=== PATIENT | male | born 1960 | race Caucasian/White ===

== ENCOUNTER 2023-03-26 07:06 | Inpatient (IN) ==
--- NOTE | 2023-02-14 10:21 | PAT Medication Instructions ---
Medication Instructions Date of Service February 14, 2023 Home Medications Pregnenolone 50 mg PO QPM cholecalciferol (vitamin D3) 25 mcg (1,000 unit) tablet (Vitamin D3) 25 mcg PO QAM coQ10 (ubiquinol) 200 mg capsule 200 mg PO QAM gabapentin 300 mg capsule 300 mg PO TID PRN glimepiride 2 mg tablet 2 mg PO BID lisinopril 5 mg tablet 5 mg PO HS metformin 1,000 mg tablet 1,000 mg PO BID methocarbamol 750 mg tablet 750 mg PO DAILY PRN prasterone (dhea) 25 mg capsule (DHEA) 25 mg PO QAM zinc 50 mg tablet 50 mg PO QAM ASK your prescriber and surgeon Pregnenolone 50 mg PO QPM STOP taking 2 weeks before surgery (or as soon as possible if surgery is within 2 weeks) coQ10 (ubiquinol) 200 mg capsule 200 mg PO QAM prasterone (dhea) 25 mg capsule (DHEA) 25 mg PO QAM DO NOT take the morning of surgery cholecalciferol (vitamin D3) 25 mcg (1,000 unit) tablet (Vitamin D3) 25 mcg PO QAM glimepiride 2 mg tablet 2 mg PO BID metformin 1,000 mg tablet 1,000 mg PO BID methocarbamol 750 mg tablet 750 mg PO DAILY PRN zinc 50 mg tablet 50 mg PO QAM Take morning of surgery With a small sip of water, OTHERWISE NOTHING TO EAT OR DRINK AFTER MIDNIGHT: gabapentin 300 mg capsule 300 mg PO TID PRN(if needed) Take evening before surgery gabapentin 300 mg capsule 300 mg PO TID PRN(if needed) glimepiride 2 mg tablet 2 mg PO BID lisinopril 5 mg tablet 5 mg PO HS metformin 1,000 mg tablet 1,000 mg PO BID Other Notes If you have any questions please call us at [phone] or [phone] or [phone] or [phone]
--- NOTE | 2023-02-15 12:23 | Anesthesiology Consultation ---
Date of Service February 15, 2023 Assessment & Plan (1) Encounter for pre-operative examination: Chart Review Chart Review: Acceptable Risk for Surgery (pending surgeon ordered PCP clearance ) and Patient seen in Pre Admission Testing - Awaiting PCP clearance 02/20/23 (please send optimization note re: uncontrolled DM/hyperglycemia and labs, EKG, and CXR to PCP office for review) - Check BSG AM DOS - Pt has high tolerance to pain medication due to being on previous pain medications Per PAT appt on 02/15/23, patient traveled to [place]- returned 02/13/23. Pt is NOT vaccinated for Covid. Will leave to surgeon's discretion if preop Covid testing needed. Educated on importance of using Covid precautions one week prior to surgery Teaching & Discussion Pre-Anesthesia Teaching/Discussion Notes: Instructed NPO after midnight before surgery,except medications with 15 cc of water. Medication instructions provided according to the PAT guidelines. History Surgery Operation Date: 02/25/23 11:25 Proposed Procedures p L2-L3 Decompression and Fusion, Possible L3-L5 Reinstrumentation, Spinal Cord Monitoring - Vasile Olivia DO Height/Weight Height: 5 ft 9 in Weight: 87.1 kg Allergies Allergy/AdvReac Type Severity Reaction Status Date / Time amoxicillin Allergy Intermediate shakey and Verified 02/14/23 09:19 hyper clavulanic acid Allergy Intermediate shakey and Verified 02/14/23 09:19 hyper Tollmpk-[id number]-DgY Reductase Allergy Intermediate severe Verified 02/14/23 09:19 Inhibitor myalgias [Ltduijw-Ecf-Irb Reductase Inhibitor] Medications Home Medications Medication Instructions Recorded Confirmed Last Taken Pregnenolone 50 mg PO QPM 02/14/23 02/14/23 Unknown cholecalciferol (vitamin D3) 25 25 mcg PO QAM 02/14/23 02/14/23 Unknown mcg (1,000 unit) tablet (Vitamin D3) coQ10 (ubiquinol) 200 mg capsule 200 mg PO QAM 02/14/23 02/14/23 Unknown gabapentin 300 mg capsule 300 mg PO TID PRN Pain 02/14/23 02/14/23 Unknown glimepiride 2 mg tablet 2 mg PO BID 02/14/23 02/14/23 Unknown lisinopril 5 mg tablet 5 mg PO HS 02/14/23 02/14/23 Unknown metformin 1,000 mg tablet 1,000 mg PO BID 02/14/23 02/14/23 Unknown methocarbamol 750 mg tablet 750 mg PO DAILY PRN Muscle Spasm 02/14/23 02/14/23 Unknown prasterone (dhea) 25 mg capsule 25 mg PO QAM 02/14/23 02/14/23 Unknown (DHEA) zinc 50 mg tablet 50 mg PO QAM 02/14/23 02/14/23 Unknown Past Medical History Medical History (Updated 02/18/23 @ 10:17 by Bhavna Riojas PA-C) BPH (benign prostatic hyperplasia) Chronic back pain Diabetes mellitus, type 2 NIDDM Glucose not under good control due to pain (fluctuating glucose) Hgb A1C on 02/15/23 was 10.0 History of COVID-19 x2--06/2022--mild symptoms, no symptoms now Hypertension Nausea and vomiting after administration of anesthetic agent normally needs a scopolamine patch Exercise / Class Metabolic Activity II 4-5 Yardwork/Stairs/Walk up hill (one flight of stairs - no chest pain or SOB ) Past Family History Family History Other No family history of adverse response to anesthesia Past Surgical History Surgical History History of cervical spinal surgery normal ROM History of cholecystectomy History of colonoscopy History of esophagogastroduodenoscopy (EGD) History of lumbar spinal fusion History of nasal polypectomy History of prostate biopsy benign History of repair of left rotator cuff History of toe surgery History of tooth extraction Past Anesthesia History No Hx of Anesthesia Complications (with exception PONV ) and No Family Hx of Anesthesia Complications (with exception to sister - PONV ) History of PONV No Hx of Motion Sickness and History of PONV (relieved with scop ) Social History Smoking Status: Never smoker Do You Dip or Chew Tobacco: No Hx Alcohol Use: No Hx Substance Use: No substance use type: does not use Review of Systems Patient denies chest pain, shortness of breath, dyspnea on exertion, reflux, cough, wheezing, palpitations. No hx of seizures, stroke, NV, apnea/snoring. No hx of blood clots or blood transfusions Physical Exam Vital Signs VITALS BP 169/71 (usually 130s systolically) P 69 TEMP 98.3 SP02 99% RESP 16 Constitutional no acute distress ENMT Mouth: no TMJ clicking Thyromental Distance: > or= 3.5 Finger Breadths (4.0) Mallampati Class: III Neck neck extension not limited Respiratory normal respiratory effort; no respiratory distress Auscultation: lungs clear to auscultation bilaterally; no wheezes Cardiovascular Rate/Rhythm: regular rate and regular rhythm Heart Sounds: no murmur Vessels: no carotid bruit Musculoskeletal Spine: no pain with cervical ROM Extremities: extremities normal to inspection Psychiatric Orientation: alert Lab Results Anesthesia Preop Results Results Anesthesia Widget: WBC 7.29 K/ul (4.8-10.8) 02/15/23 Hgb 14.4 g/dl (14.0-18.0) 02/15/23 Hct 41.5 % (42.0-52.0) L 02/15/23 Plt 209 K/uL (130-400) 02/15/23 Na 136 mmol/L (136-145) 02/15/23 K 4.4 mmol/L (3.5-5.1) 02/15/23 Cl 102 mmol/L (98-107) 02/15/23 CO2 24 mmol/L (21-32) 02/15/23 BUN 16 mg/dl (6-23) 02/15/23 Creat 1.05 mg/dl (0.6-1.4) 02/15/23 Glucose Level 250 mg/dl (70-99(Fasting)) H 02/15/23 PT 10.2 Seconds (9.0-12.0) 02/15/23 PTT 25.9 Seconds (21.0-31.0) 02/15/23 INR 0.9 (0.9-1.1) 02/15/23 HA1c 10.0 % (4.5-5.6) H 02/15/23 Urine Color Dark Yellow 02/15/23 Urine Appearance Clear (Clear) 02/15/23 Urine pH 5.5 (4.5-7.5) 02/15/23 Urine Specific [place] 1.019 (1.000-1.030) 02/15/23 Urine Protein Negative (Negative) 02/15/23 Urine Glucose (UA) Negative (Negative) 02/15/23 Urine Ketones 1+ (Negative) H 02/15/23 Urine Blood Negative (Negative) 02/15/23 Urine Nitrite Negative (Negative) 02/15/23 Urine Bilirubin Negative (Negative) 02/15/23 Urine Urobilinogen Negative (Negative) 02/15/23 Urine Leukocyte Esterase Negative (Negative) 02/15/23 Blood Type A Positive 02/15/23 Antibody Screen NEGATIVE 02/15/23 Testing Laboratory Results Surgeon's office informed of hyperglycemia and uncontrolled DM Electrocardiogram Date: 02/15/23 Findings: + NSR @ (69bpm) Normal EKG per cardio Chest X-Ray Date: 02/15/23 Findings: + NAD FINDINGS: Cardiac mediastinal and hilar silhouettes are within normal limits. Unchanged eventration of the right hemidiaphragm. No pneumothorax, pleural effusion, airspace consolidation or pulmonary edema. Discectomy changes of the lower cervical spine. Cholecystectomy. COVID-19 Risk Screen Screening Information COVID-19 Screen Date: 02/15/23 Exposure 21 Days Family/Household +COVID Last 21 Days: No Exposure 10 Days Any COVID Exposure Last 10 Days: No Symptoms Last 10 Days Experienced COVID Sx Last 10 Days: No + COVID 0-90 Days COVID + in Last 0-90 Days: No Risk Plan COVID Risk Plan: No Risk Identified Patient Education COVID Preop Screening Education Complete: Yes
[~2023-03-26 07:06] MED LIST: ACETAMINOPHEN 500 MG TAB PO SCH; CLINDA 900 MG **Premixed Bag IV SCH; CeleBREX 200 MG CAP PO SCH; DEXAMETHASONE SOD INJ 4 MG/ML VIAL ONE; GABAPENTIN 600 MG DOSE PO SCH; LIDOCAINE 2% 2 ML VIAL/AMP(20MG/ML) INFIL ONE; LR 15ML/HR IV SCH; MIDAZOLAM HCL 1 MG/ML 2ML VIAL ONE; ONDANSETRON INJ 2 MG/ML 2 ML VIAL ONE; PROPOFOL IV EMULSION 10 MG/ML 20 ML VIAL IV ONE; SUGAMMADEX SODIUM 200 MG/2 ML VIAL IV ONE; fentaNYL citrate PF 100 MCG/2 ML VIAL ONE
[2023-03-26] MEDS ORDERED: PROMETHAZINE HCL 6.25 MG in SODIUM CHLORIDE 0.9% 50 ML IV PRN (08:43)
[2023-03-26] MEDS ORDERED: HYDROmorphone INJ 2 MG/ML SYR/VIAL IV PRN (08:43)
[2023-03-26] MEDS ORDERED: ONDANSETRON INJ 2 MG/ML 2 ML VIAL IV PRN ×2 (08:43→12:27)
[2023-03-26] MEDS ORDERED: ePHEDrine sulfate 50 MG/ML AMP IV PRN (08:43)
[2023-03-26] MEDS ORDERED: ATROPINE SULFATE 0.1 MG/ML 10ML SYR IV PRN (08:43)
[2023-03-26] MEDS ORDERED: SCOPOLAMINE 1 MG TDSY TD ONE ×2 (08:44→08:45)
--- NOTE | 2023-03-26 08:45 | History & Physical Bridge Note ---
Date of Service March 26, 2023 History & Physical Bridge Note I have examined the patient, reviewed the History & Physical and in the interval since the performance of the History & Physical I have noted the following changes of clinical significance: no changes noted
--- NOTE | 2023-03-26 08:47 | History & Physical Report ---
Date of Service March 26, 2023 Assessment & Plan (1) Neurogenic claudication due to lumbar spinal stenosis: Plan: L2-L3 decompression and fusion, possible L3-L5 instrumentation History of Present Illness Chief Complaint: back and bilateral leg pain Primary Care Provider: Antonio Rodriguez MD This is a 62-year-old male who presents with chronic persistent back and bilateral leg pain after an extensive course of nonoperative care is here for surgical invention. Allergies Allergy/AdvReac Type Severity Reaction Status Date / Time amoxicillin Allergy Intermediate shakey and Verified 03/26/23 07:43 hyper clavulanic acid Allergy Intermediate shakey and Verified 03/26/23 07:43 hyper Krmiewx-WOO-DdI Reductase Allergy Intermediate severe Verified 03/26/23 07:43 Inhibitor myalgias [Ifjbwda-Amo-Mfp Reductase Inhibitor] Home Medications Medication Instructions Recorded Confirmed Type Pregnenolone 50 mg PO QPM 02/14/23 03/26/23 History cholecalciferol (vitamin D3) 25 25 mcg PO QAM 02/14/23 03/26/23 History mcg (1,000 unit) tablet (Vitamin D3) coQ10 (ubiquinol) 200 mg capsule 200 mg PO QAM 02/14/23 03/26/23 History gabapentin 300 mg capsule 300 mg PO TID PRN Pain 02/14/23 03/26/23 History glimepiride 2 mg tablet 2 mg PO BID 02/14/23 03/26/23 History lisinopril 5 mg tablet 5 mg PO HS 02/14/23 03/26/23 History metformin 1,000 mg tablet 1,000 mg PO BID 02/14/23 03/26/23 History methocarbamol 750 mg tablet 750 mg PO DAILY PRN Muscle Spasm 02/14/23 03/26/23 History prasterone (dhea) 25 mg capsule 25 mg PO QAM 02/14/23 03/26/23 History (DHEA) zinc 50 mg tablet 50 mg PO QAM 02/14/23 03/26/23 History tramadol 50 mg tablet 50 mg PO Q6H PRN Pain 03/26/23 03/26/23 History Past Med/Surg History Medical History (Updated 03/26/23 @ 08:47 by Vasile Olivia DO) BPH (benign prostatic hyperplasia) Chronic back pain Diabetes mellitus, type 2 NIDDM Glucose not under good control due to pain (fluctuating glucose) Hgb A1C on 02/15/23 was 10.0 History of COVID-19 x2--06/2022--mild symptoms, no symptoms now Hypertension Nausea and vomiting after administration of anesthetic agent normally needs a scopolamine patch Surgical History History of cervical spinal surgery normal ROM History of cholecystectomy History of colonoscopy History of esophagogastroduodenoscopy (EGD) History of lumbar spinal fusion History of nasal polypectomy History of prostate biopsy benign History of repair of left rotator cuff History of toe surgery History of tooth extraction Family History Other No family history of adverse response to anesthesia Social History Smoking Status: Never smoker Second Hand Exposure: No; Do You Dip or Chew Tobacco: No; Tobacco Cessation Education Requested by Patient: No Hx Alcohol Use: No Hx Substance Use: No Preferred Language: Welsh Communication Ability: Effective Director [employer] Required: No Beliefs That Will Affect Care: None Current Living Situation: Spouse Other Information That Helps Us Care for You: No Feels Safe at Home: Yes Safety Concerns: Feels Safe At This Time Assistive Devices: Glasses Physical Exam Physical Exam: Patient is alert and oriented Heart regular rhythm Lungs clear Results & Data Results & Data Vital Signs (Past 12 Hours) Vital Signs Temp Pulse Resp BP Pulse Ox O2 Del Method 03/26/23 07:50 36.7 C 75 20 159/84 H 98 Room Air
[2023-03-26] MEDS ORDERED: BUPIVACAINE/EPINEPHRINE 0.25% 1:200,000 30 ML VIAL ONE (08:53)
[2023-03-26] MEDS ORDERED: ceFAZolin 330 MG/ML 1 GM VIAL ONE (08:53)
[2023-03-26] MEDS ORDERED: KETAMINE 50 MG/5 ML SYRINGE ONE (09:34)
[2023-03-26] MEDS ORDERED: ROCURONIUM BROMIDE 10 MG/ML 5 ML VIAL IV ONE ×10 (09:44)
[2023-03-26] MEDS ORDERED: PROPOFOL IV EMULSION 10 MG/ML 100 ML VIAL IV ONE (09:47)
[2023-03-26] MEDS ORDERED: FLOSEAL HEMOSTATIC MATRIX 10ML TOP ONE (09:59)
--- NOTE | 2023-03-26 11:10 | Operative Report ---
Post Operative Report Pre & Post Diagnosis Operation Date: 03/26/23 08:45 Pre-Op Diagnosis: Neurogenic claudication due to lumbar spinal stenosis Post-Op Diagnosis: Neurogenic claudication due to lumbar spinal stenosis I identified the patient and participated in the time-out.: Yes Procedure Operation Date: 03/26/23 08:45 Actual Procedures 1. Removal of posterior instrumentation L3-L5 per #2 exploration of fusion L3 L5 #3 lumbar decompression with bilateral medial facetectomies and foraminotomies L1-L2 L2-L3. #4 posterior spinal fusion L2-L3. #5 placement posterior instrumentation L2-L5. #6 interbody fusion L2-L3. #7 placement of Spira 13 x 26 mm cage at L2-L3. #8 placement locally harvested morselized autograft in the posterior gutters. #9 placement of I factor combined with V toss in the interbody space and posterior lateral gutters. Surgeon Vasile Olivia, Biogeographer Annabel Pineda Estimated Blood Loss 200 Findings Consistent with Post-Op Diagnosis Specimens none Indications This is a 62-year-old male who presents above-mentioned diagnosis after failed course of nonoperative care is here for surgical invention. Description of Procedure Patient was met with identified informed consent obtained. Patient was then taken to the operative suite underwent ablation placed in a prone position on the Jex table top Charli frame. All bony promises well-padded eyes inspected to ensure no external pressure placed upon the. This point the lumbar spine is prepped and draped in a sterile fashion. Sharp dissection with the assistance of Bovie cautery was performed down to and exposing the lamina and transverse processes of L2 and instrumentation at L3 L4-5 bilaterally. Then proceeded move the hardware bilaterally explore the fusion mass noting it to be mature and intact. Then performed a complete laminectomy L2 partial laminectomy of L1 including bilateral medial facetectomies and foraminotomies addressing severe spinal stenosis. Pedicle screws then placed L2-L3 and L5 bilaterally with assistance of fluoroscopy and appropriately sized gertrude placed. By way of transforaminal approach on the right complete discectomy of L2-L3 was performed endplates curetted to subcortically bone and a 13 x 26 mm Spira cage with I factor tapped in position. The rods were then locked in final position bilaterally. The transverse processes of L2-L3 burred to subcortical bleeding bone. I factor amount of the test and locally harvested morselized autograft placed in the posterior gutters. 15 round BRETT drain inserted. The incision was then closed with 1 Vicryl to fascia 2-0 Vicryl subcutaneously and 4 Monocryl for final skin closure. Steri-Strips sterile dressing placed. Patient awakened taken to PACU stable condition. Please note spinal cord monitoring visualized at the procedure no changes noted. Lastly Annabel Pineda was present at the entire surgery involved the patient positioning complex portions of the surgery and final skin closure. I attest to the content of the Intraoperative Record and any orders documented therein. Any exceptions are noted below.
--- NOTE | 2023-03-26 11:17 | Fluoroscopy Report ---
INTRAOPERATIVE RADIOGRAPHS CLINICAL HISTORY: Lumbar spinal fusion surgery. Fluoro time: 18 seconds Ka,r: 10.69 mGy FINDINGS: 3 spot fluoroscopic views of the lumbar spine are presented. There has been discectomy at L 2-L3 and L4-L5, with laminectomy and posterior fusion seen at L2-L5. Interpedicular screws are presen t at all levels with the exception of L4. The orthopedic hardware appears intact. IMPRESSION: Intraoperative images from lumbar spinal fusion surgery as above. Electronically signed by: Neo Márquez M.D. 03/26/2023 11:15 AM
[2023-03-26] MEDS: fentaNYL citrate PF 100 MCG/2 ML VIAL IV PRN ×2 (11:55→12:00)
[2023-03-26] MEDS ORDERED: FAMOTIDINE 20 MG TAB PO PRN (12:27)
[2023-03-26] MEDS ORDERED: MAGNESIUM HYDROXIDE SUSP 30 ML UDC PO PRN (12:27)
[2023-03-26] MEDS ORDERED: LORazepam 0.5 MG TAB PO PRN (12:27)
[2023-03-26] MEDS ORDERED: ACETAMINOPHEN 500 MG TAB PO PRN (12:27)
[2023-03-26] MEDS ORDERED: bisacodyL 10 MG SUPP PR PRN (12:27)
[2023-03-26] MEDS ORDERED: DO NOT ADMINISTER FLU VACCINE PRN (12:27)
[2023-03-26] MEDS ORDERED: traMADol HCL 50 MG TABLET PO PRN (12:27)
[2023-03-26] MEDS ORDERED: diphenhydrAMINE Capsule 25 MG CAP PO PRN (12:27)
[2023-03-26] MEDS ORDERED: LORazepam 2 MG/1 ML VIAL IV PRN (12:27)
[2023-03-26] MEDS ORDERED: PHARMACY GLYCEMIC MGMT CONSULT PRN (12:27)
[2023-03-26] MEDS ORDERED: ACETAMINOPHEN 1,000 MG/100 ML VIAL IV PRN (12:27)
[2023-03-26] MEDS ORDERED: GABAPENTIN 300 MG CAP PO PRN (12:27)
[2023-03-26] MEDS ORDERED: hydrOXYzine HCl 25 MG TAB PO PRN (12:27)
[2023-03-26] MEDS ORDERED: ONDANSETRON 4 MG OD TAB PO PRN (12:27)
[2023-03-26] MEDS ORDERED: PROMETHAZINE HCL 12.5 MG in SODIUM CHLORIDE 0.9% 50 ML IV PRN (12:27)
[2023-03-26] MEDS ORDERED: DO NOT ADMINISTER PNEUMOCOCCAL VACCINE PRN (12:27)
[2023-03-26] MEDS ORDERED: ALUMINUM/MAGNESIUM SUSP 30 ML UDC PO PRN (12:27)
[2023-03-26] MEDS ORDERED: METOCLOPRAMIDE HCL INJ 5 MG/ML 2 ML VIAL IV PRN (12:27)
[2023-03-26] MEDS ORDERED: NALOXONE HCL 0.4 MG/1 ML VIAL/CARP IV PRN (12:27)
[2023-03-26] MEDS ORDERED: SOD PHOSPHATE/SOD BIPHOSPHATE ENEMA 132 ML BTL PR PRN (12:27)
[2023-03-26] MEDS: SODIUM CHLORIDE 0.9% 1000ML 1,000 ML IV SCH (12:30)
[2023-03-26] MEDS: HYDROmorphone INJ 1 MG/ML SYRINGE IV PRN (12:46)
--- NOTE | 2023-03-26 13:03 | Hospitalist Consultation ---
Date of Consultation March 26, 2023 Assessment & Plan (1) Neurogenic claudication due to lumbar spinal stenosis: - Post op day #0 L2L3 decompression and fusion, L3L5 reinstrumentation, spinal cord monitoring and L3-L5 hardware removal (EBL 200) (2) Weakness of left upper extremity: A stroke alert was called and patient went urgently to CT scan CT head revealed no acute intracranial findings. CTA head unremarkable CTA of the brain. CTA neck revealed high grade stenosis at the origin of the vertebral artery and atheromatous plaque involving the proximal cervical segments of the internal carotid arteries resulting in less than 50% stenosis. Messaged to anesthesia to see if any concerns perioperatively with patient Spoke with Dr Olivia over the phone and informed him of patient's complaints, his CT and CTA results and also about his transfer to [facility]. Discussed MRI head and neck and per Dr Olivia this is fine to order from his standpoint he stated all his hardware is titanium and able to have the MRI. Dr Olivia also stated that the surgery went well with no complications and he also felt his symptoms may be positional. His arms were up over his head during the surgery. Transfer patient to [facility] (3) Diabetes mellitus, type 2: Chronic, unstable Last HgbA1C was 10 in February 2023 Primary team consulted pharmacy for glycemic control (4) DDD (degenerative disc disease), cervical: Chronic Hx of C3 surgery 2014 Hx of left shoulder surgery 2019 (5) Hypertension: Chronic, stable Continue Lisinopril Supervising Physician Co-Signing Physician Notes I personally saw and examined the patient. I verified all rolon points and agree with Paige Chow PA-C with the following exceptions and/or additions: 62 year old male POD#0 Lumbar spinal decompression and revision of hardware. Priority texted to bedside as when patient came up from PACU having left lower extremity and left upper extremity weakness. No change in vision, speech or hearing. On discussion with his she reports unexplained LLE weakness after prior back surgery but not LUE weakness. He has had cervical spine surgery due to LUE radicular symptoms in the past and neck pain but these have resolved following surgery and no recent problems with this. O/E Alert and orientated x3, HS RRR, no murmurs, Chest CTAB, Abdo SNT, normal speech exam, PERRL, EOMI without diplopia, Significant pronator drift on left upper extremity with numbness in this sidem unable to lift arm against gravity only with gravity removed. CN 2-> 12 intact, LLE also with generalized numbness compared to RLE. A/P Stroke-like symptoms - stroke alert called for imaging and labs although patient not TNK candidate given back surgery POD#0 therefore telestroke actually c onsultation cancelled. Brain MRI and cervical spine ordered. Improving LUE weakness on repeat exam following CT. Unclear if LLE weakness/numbness same process but this could be due to his surgery and would re-examine in the morning. His LUE weakness appears to be neuropathic but unclear if positional cause vs. neck vs srtoke. MRI brain and cervical spine wo IV contrast. Otherwise as above History of Present Illness Reason for Consultation: Medical management Requesting Physician: Dr Olivia Attending Physician: Vasile Olivia, DO History of Present Illness Reggie Rodgers is a 62 year old with a past medical history of HT, DM, Migraine headaches, DDD of cervical spine with previous C3 surgery and neurogenic claudication due to lumbar spinal stenosis who failed medical managemet and presented today for elective back surgery with Dr Olivia. Patient is post op day#0 L2L3 decompression and fusion, L3L5 reinstrumentation, spinal cord monitoring and L3-L5 hardware removal (EBL 200). A consult was placed with the hospitalist service for medical management. When patient came up to the floor from PACU, he was complaining of bilateral arm/hand numbness. Later he stated that the left arm felt weaker and was numb and tingling. He did not have any problems speaking. His was at bedside and stated that she felt his face was symmetrical and at his baseline. A stroke alert was called and patient went urgently to ce CT head, CTA neck and head. Ct head revealed no acute intracranial findings. CTA neck revealed high grade stenosis at the origin of the vertebral artery and atheromatous plaque involving the proximal cervical segments of the internal carotid arteries resulting in less than 50% stenosis. Patient was reevaluated after CT scans and he stated that the left arm was starting to feel like the sensation was returning. Patient's also stated that he had left shoulder surgery and C3 surgery in the past. She states he had problems also in the past after his previous surgeries with weakness and numbness. Allergies Allergy/AdvReac Type Severity Reaction Status Date / Time amoxicillin Allergy Intermediate gely and Verified 03/26/23 07:43 hyper clavulanic acid Allergy Intermediate shakey and Verified 03/26/23 07:43 hyper Hkladmr-FZN-LwM Reductase Allergy Intermediate severe Verified 03/26/23 07:43 Inhibitor myalgias [Agxeimq-Ndr-Vxp Reductase Inhibitor] Home Medications Medication Instructions Recorded Confirmed Type Pregnenolone 50 mg PO QPM 02/14/23 03/26/23 History cholecalciferol (vitamin D3) 25 25 mcg PO QAM 02/14/23 03/26/23 History mcg (1,000 unit) tablet (Vitamin D3) coQ10 (ubiquinol) 200 mg capsule 200 mg PO QAM 02/14/23 03/26/23 History gabapentin 300 mg capsule 300 mg PO TID PRN Pain 02/14/23 03/26/23 History glimepiride 2 mg tablet 2 mg PO BID 02/14/23 03/26/23 History lisinopril 5 mg tablet 5 mg PO HS 02/14/23 03/26/23 History metformin 1,000 mg tablet 1,000 mg PO BID 02/14/23 03/26/23 History methocarbamol 750 mg tablet 750 mg PO DAILY PRN Muscle Spasm 02/14/23 03/26/23 History prasterone (dhea) 25 mg capsule 25 mg PO QAM 02/14/23 03/26/23 History (DHEA) zinc 50 mg tablet 50 mg PO QAM 02/14/23 03/26/23 History tramadol 50 mg tablet 50 mg PO Q6H PRN Pain 03/26/23 03/26/23 History Patient History Medical History (Updated 03/26/23 @ 14:16 by Sharda Chow PA-C) BPH (benign prostatic hyperplasia) Chronic back pain Diabetes mellitus, type 2 NIDDM Glucose not under good control due to pain (fluctuating glucose) Hgb A1C on 02/15/23 was 10.0 History of COVID-19 x2--06/2022--mild symptoms, no symptoms now Hypertension Nausea and vomiting after administration of anesthetic agent normally needs a scopolamine patch Surgical History History of cervical spinal surgery normal ROM History of cholecystectomy History of colonoscopy History of esophagogastroduodenoscopy (EGD) History of lumbar spinal fusion History of nasal polypectomy History of prostate biopsy benign History of repair of left rotator cuff History of toe surgery History of tooth extraction Family History Other No family history of adverse response to anesthesia Social History Smoking Status: Never smoker Second Hand Exposure: No; Do You Dip or Chew Tobacco: No; Tobacco Cessation Education Requested by Patient: No Hx Alcohol Use: No Hx Substance Use: No Preferred Language: Malay Communication Ability: Effective Tool Drawing Checker Required: No Beliefs That Will Affect Care: None Current Living Situation: Spouse Other Information That Helps Us Care for You: No Feels Safe at Home: Yes Safety Concerns: Feels Safe At This Time Assistive Devices: Glasses Review of Systems Constitutional: no fever, no chills and no sweats Eyes: no blind spots, no diplopia, no eye pain and no problem reported Respiratory: no cough, no dyspnea and no hemoptysis Cardiovascular: no chest pain, no dyspnea, no palpitations and no edema Gastrointestinal: no abdominal pain, no nausea and no vomiting Integumentary: no rash, no lesions and no new lesions Neurologic: + loss of sensation, + tingling and + paresthesia; no falls, no paralysis, no tremor(s), no seizure-like activity, no headache(s) and no confusion Endocrine: no polydipsia, no polyphagia and no polyuria Physical Exam Constitutional: WD/WN, vitals as above Neck: trachea midline, no thyromegaly Respiratory: normal respiratory effort, lungs clear to auscultation Cardiovascular: RRR, no murmur, no edema Extremities: normal capillary refill; no calf tenderness and no edema Gastrointestinal (Abdomen): normal bowel sounds, soft, nontender, no hepatosplenomegaly Skin: no rashes, warm and dry Neurologic: normal touch/pain/proprioception, CN's II-XI intact bilaterally, deep tendon reflexes 2+ bilaterally, moves all extremities and awake mild weakness to teachers' assistant on left compared to the right Psychiatric: A+Ox3, euthymic affect Results & Data Results & Data Vital Signs (Past 12 Hours) Vital Signs Temp Pulse Pulse Resp BP Pulse Ox O2 Del Method 03/26/23 12:31 36.5 C 83 18 163/87 H 94 Room Air 03/26/23 12:20 37.1 C 80 19 155/86 H 96 Nasal Cannula 03/26/23 12:10 76 19 149/69 H 95 Room Air 03/26/23 12:00 82 18 150/78 H 93 Room Air 03/26/23 11:50 78 12 153/82 H 96 Room Air 03/26/23 11:40 78 15 142/72 H 100 Oxymask 03/26/23 11:30 73 13 124/68 99 Oxymask 03/26/23 11:23 36.3 C L 77 16 148/75 H 96 Oxymask 03/26/23 07:50 36.7 C 75 20 159/84 H 98 Room Air O2 Flow Rate 03/26/23 12:31 03/26/23 12:20 2 03/26/23 12:10 03/26/23 12:00 03/26/23 11:50 03/26/23 11:40 6 03/26/23 11:30 10 03/26/23 11:23 10 03/26/23 07:50 Laboratory Results Abnormal lab results 03/26/23 03/26/23 Range/Units 07:44 11:27 POC Glucose 119 H 170 H (70-99) mg/dl Diagnostic Findings Lumbar Spine X-Ray 03/26/23 08:45 INTRAOPERATIVE RADIOGRAPHS CLINICAL HISTORY: Lumbar spinal fusion surgery. Fluoro time: 18 seconds Ka,r: 10.69 mGy FINDINGS: 3 spot fluoroscopic views of the lumbar spine are presented. There has been discectomy at L2-L3 and L4-L5, with laminectomy and posterior fusion seen at L2-L5. Interpedicular screws are present at all levels with the exception of L4. The orthopedic hardware appears intact. IMPRESSION: Intraoperative images from lumbar spinal fusion surgery as above. Electronically signed by: Neo Márquez M.D. 03/26/2023 11:15 AM PG Care Time/CCT Total # of Minutes Spent Total Time Spent with Patient: Total time spent is greater than 50% in coordination of care (as documented) at patient's floor/unit and/or counseling patient: Coding Level of Care Code 51114 IN/OBS CONSULT LVL 5,80M Diagnoses Neurogenic claudication due to lumbar spinal stenosis M48.062 Weakness of left upper extremity R29.898 Diabetes mellitus, type 2 E11.9 DDD (degenerative disc disease), cervical M50.30 Hypertension I10
--- NOTE | 2023-03-26 13:21 | Anesthesiology Progress Note ---
Date of Service March 26, 2023 Anesthesia Post Procedure Vital Signs Vital Signs: Temp Pulse Pulse Resp BP Pulse Ox O2 Del Method 03/26/23 12:55 36.5 C 80 14 145/76 H 92 Room Air 03/26/23 12:31 36.5 C 83 18 163/87 H 94 Room Air 03/26/23 12:20 37.1 C 80 19 155/86 H 96 Nasal Cannula 03/26/23 12:10 76 19 149/69 H 95 Room Air 03/26/23 12:00 82 18 150/78 H 93 Room Air 03/26/23 11:50 78 12 153/82 H 96 Room Air 03/26/23 11:40 78 15 142/72 H 100 Oxymask 03/26/23 11:30 73 13 124/68 99 Oxymask 03/26/23 11:23 36.3 C L 77 16 148/75 H 96 Oxymask 03/26/23 07:50 36.7 C 75 20 159/84 H 98 Room Air O2 Flow Rate 03/26/23 12:55 03/26/23 12:31 03/26/23 12:20 2 03/26/23 12:10 03/26/23 12:00 03/26/23 11:50 03/26/23 11:40 6 03/26/23 11:30 10 03/26/23 11:23 10 03/26/23 07:50 Pain Intensity Medial Back: Pain Intensity: 8 Transfer of Care Handoff Completed per policy Notes Mental Status: alert / awake / arousable Patient Amnestic to Procedure: Yes Nausea / Vomiting: adequately controlled Pain: adequately controlled Airway Patency, RR, SpO2: stable & adequate BP & HR: stable & adequate Hydration State: stable & adequate Anesthetic Complications: no major complications apparent
[2023-03-26] MEDS ORDERED: OPTIRAY 320 125ml IV ONE (13:27)
[2023-03-26] MEDS ORDERED: GLUCOSE 40% GEL 15 GM TUBE PO PRN (13:30)
[2023-03-26] MEDS ORDERED: GLUCAGON FOR INJ 1 MG VIAL IM PRN (13:30)
[2023-03-26] MEDS ORDERED: GLUCOSE 10 TAB/TUBE PO PRN (13:30)
[2023-03-26] MEDS ORDERED: CARBOHYDRATES FOR HYPOGLYCEMIA PO PRN (13:30)
[2023-03-26] MEDS ORDERED: DEXTROSE 50% 50 ML SYRINGE IV PRN (13:30)
[2023-03-26 13:34] LABS: Basophils # (auto) 0.05 K/uL (0-0.2); Basophils % (auto) 0.9 %; Eosinophils # (auto) 0.08 K/uL (0-0.50); Eosinophils % (auto) 1.4 %; Hematocrit (blood only) 35.6 % (42.0-52.0); Hemoglobin 12.6 g/dl (14.0-18.0); Immature Granulocytes # (auto) 0.07 K/uL (0.01-0.20); Immature Granulocytes % (auto) 1.2 %; Lymphocytes # (auto) 0.84 K/uL (1.2-3.4); Lymphocytes % (auto) 14.4 %; Mean Corpuscular Hemoglobin 28.9 pg (25.0-34.0); Mean Corpuscular Hgb Conc 35.4 g/dL (32.0-36.0); Mean Corpuscular Volume 81.7 fL (80.0-100.0); Mean Platelet Volume 10.1 fL (9.4-12.4); Monocytes # (auto) 0.11 K/uL (0.11-0.59); Monocytes % (auto) 1.9 %; Neutrophils % (auto) 80.2 %; Platelet Count 185 K/uL (130-400); RDW Coefficient of Variation 13.3 % (11.5-14.5); RDW Standard Deviation 39.6 fL (36.4-46.3); Red Blood Count 4.36 M/uL (4.70-6.10); White Blood Count 5.85 K/ul (4.8-10.8)
--- NOTE | 2023-03-26 13:50 | CT Scan Report ---
CT OF THE HEAD WITHOUT CONTRAST CLINICAL HISTORY: Left upper and lower extremity weakness. COMPARISON STUDY: No previous studies for comparison. TECHNIQUE: Helical axial images of the head were obtained without IV contrast. Automated exposure con trol was utilized for the study. A dose lowering technique was utilized adhering to the principles o f ALARA. FINDINGS: No acute intracranial hemorrhage, midline shift or mass effect is present. The ventricular system is unremarkable. The basal cisterns are patent. No extra-axial collections are present. There are no findings to suggest acute dural sinus thrombosis or acute territorial infarct. No significant calvarial abnormalities are present. Visualized portions of the sinuses and mastoid air cells are brittani ar. There is a 2.2 cm cystic lesion associated with a left maxillary molar. This extends into the lef t maxillary sinus. This may reflect an odontogenic cyst. IMPRESSION: No acute intracranial findings. ACT 112: Negative or not required by law. Electronically signed by: David Dale M.D. 03/26/2023 1:47 PM
[2023-03-26 13:51] LABS: INR 0.9 (0.9-1.1); Partial Thromboplastin Ratio 0.9; Partial Thromboplastin Time 26.2 Seconds (21.0-31.0); Prothrombin Time 10.4 Seconds (9.0-12.0)
--- NOTE | 2023-03-26 13:52 | CT Scan Report ---
CT angio neck with con CLINICAL HISTORY: 62 years-old Male with Left sided weakness, numbness post surgery. Acute stroke like symptoms with left-sided weakness COMPARISON STUDY: CTA head of same day TECHNIQUE: Following the IV administration of 122 mL of Optiray, CT angiogram of the neck was perform ed from the aortic arch to the skull base. Images are reviewed in the axial, sagittal, and coronal pl anes. 3-D MIPS images are created and assessed. IV contrast was administered without complication. Al l measurements were calculated based on NASCET criteria. A dose lowering technique was utilized adhe ring to the principles of ALARA. CT DOSE: 1238.85 mGy.cm FINDINGS: Three-vessel morphology of the thoracic aorta arch. Patency of the nominate and image subclavian nadege tyson. Common carotid arteries are patent. Atheromatous plaque of the carotid bulbs and proximal cervi jose segments of the internal carotid arteries, left greater than right resulting in less than 50% elizabeth nosis. There is mild luminal irregularity involving the proximal cervical segment left ICA. Partially imaged at least mild narrowing noted within the middle cerebral arteries. Vertebral arteries are codominant. The right vertebral artery is widely patent. There is high-grade a pproximate 90% stenosis at the origin of the left vertebral artery on image 82 series 6. The remainde r of the left vertebral artery is patent. Patent basilar artery. origin of the posterior cerebr al arteries with at least mild stenosis noted on the right. Lung apices appear clear. Diffuse centimeter focus of polypoid mucosal thickening noted within the le ft maxillary sinus. Mastoid air cells are clear. Degenerative changes of. Discectomy changes at C6-C7 . IMPRESSION: 1. High-grade stenosis at the origin of the left vertebral artery. 2. Atheromatous plaque involving the proximal cervical segments of the internal carotid arteries resu lts in less than 50% stenosis. ACT 112: Negative or not required by law. The above report was generated using voice recognition software. It may contain grammatical, syntax o r spelling errors. Electronically signed by: Armando Vera M.D. 03/26/2023 1:51 PM
--- NOTE | 2023-03-26 13:56 | CT Scan Report ---
CT ANGIOGRAM OF THE BRAIN CLINICAL HISTORY: Left upper and lower extremity weakness. COMPARISON STUDY: Unenhanced CT of the brain performed concurrently on 03/26/2023. TECHNIQUE: Following the IV administration of 122 cc of Optiray 320, CT angiogram of the brain was pe rformed from the skull base to the vertex. Images are reviewed in the axial, sagittal, and coronal pl anes. 3-D MIPS images are created and assessed. IV contrast was administered without complication. A dose lowering technique was utilized adhering to the principles of ALARA. FINDINGS: Brain parenchyma: There is no evidence hemorrhage, mass effect, or acute territorial ischemia noting angiographic phase technique. There is no evidence of enhancing mass lesion on the angiogram phase im ages. No extra-axial fluid collection is seen. Evans-white matter differentiation is preserved. Ventricles, sulci, and cisterns: Normal in configuration. CT angiogram of the brain: The internal carotid arteries are widely patent, as are the anterior and m iddle cerebral arteries. There is origin of both posterior cerebral arteries. The basilar arter y is diminutive. The vertebrobasilar system and posterior cerebral arteries are patent. The left vert ebral artery is dominant. There is no aneurysm, high-grade stenosis, or focal vessel cutoff identifie d throughout the intracranial circulation. Dural sinuses: Clear as visualized. Orbits: The bony orbits are intact. The orbital contents are normal as visualized. Sinuses and mastoids: There is a 2.2 cm retention cyst versus dentigerous cyst between the left maxil singh antrum and the most posterior left maxillary molar. The paranasal sinuses are otherwise clear. T he mastoid air cells are well pneumatized. Calvarium: Unremarkable. IMPRESSION: 1. There is no evidence hemorrhage, mass effect, or acute territorial ischemia noting angiographic ph ase technique. 2. Unremarkable CT angiogram of the brain. ACT 112: Negative or not required by law. Electronically signed by: Neo Márquez M.D. 03/26/2023 1:54 PM
[2023-03-26 13:58] LABS: Albumin Globulin Ratio 1.7 (0.9-2); Albumin Level 4.1 gm/dl (3.4-5.0); BUN Creatinine Ratio 15.6 (10-20); Bilirubin,Total 0.3 mg/dl (0.2-1.0); Calcium 8.6 mg/dl (8.6-10.3); Creatinine Clr Calc Pharmacy 80.8 ml/min; Est GFR (African American) 98.5 ml/min; Globulin 2.4 gm/dl (2.5-4.0); Potassium 4.4 mmol/L (3.5-5.1); Total Protein 6.5 gm/dl (6.0-8.3)
[2023-03-26] MEDS: HYDROmorphone INJ 0.5 MG/0.5 ML SYR IV PRN ×2 (14:33→22:14)
--- NOTE | 2023-03-26 14:55 | Pharmacy Report ---
Pharmacy Glycemic Short Note 2 - Date of Service March 26, 2023 - Glycemic Short BSG Results (Last 24 hours): 03/26/23 03/26/23 03/26/23 07:44 11:27 13:11 Glucose POC Glucose 119 H 170 H 245 H 03/26/23 13:19 Glucose 236 H POC Glucose OUTPATIENT ANTIDIABETIC REGIMEN: * Glimepiride 2mg PO BID * Metformin 1gm PO BID * HbA1c: 10% (02/15/23) ASSESSMENT: * Mr Rodgers is a 62yo diabetic M, POD 0 s/p spinal surgery with Dr Olivia this morning. * Post-op, stroke alert was called on patient for arm weakness/numbness. * Pt received 8mg IV DXM pre-operatively today and is scheduled for daily doses x3. This is expected to lead to significant steroid-induced hyperglycemia. * Pt was initiated on SQ basal/bolus insulin regimen on admission. * Pharmacy will continue to follow and adjust regimen as indicated. PLAN FOR INPATIENT GLYCEMIC CONTROL: * Hold outpatient oral diabetes medications * Basal insulin * Lantus 20 units SQ x1 dose on admission * will re-eval 03/27 * Bolus insulin * NovoLog per scale ACHS or Q6hrs while NPO * Goal Range: Low 110 mg/dL - High 140 mg/dL * Correction Factor: 30 mg/dL/unit * Nutritional / Prandial insulin per carb ratio of 1 unit per 10 grams CHO consumed
[2023-03-26] MEDS: CHECK SCOPOLAMINE PATCH PLACEMENT SCH (15:17)
[2023-03-26] MEDS: oxyCODONE HCL IR 5 MG TAB (IMMEDIATE RELEASE) PO PRN ×2 (16:03→22:32)
[2023-03-26] MEDS ORDERED: LANTUS PER UNIT CHARGE SC ONE (16:30)
--- NOTE | 2023-03-26 17:30 | Magnetic Resonance Report ---
MR brain wo con HISTORY: 62 years-old Male weakness and numbness left arm acute strokelike symptoms COMPARISON: Head CT of same day TECHNIQUE: Multiplanar multisequence MRI of the brain was obtained without the use of IV contrast. FINDINGS: No restricted diffusion. Midline structures are unremarkable. Degenerative changes of the cervical sp ine. There is no acute intracranial hemorrhage, midline shift, abnormal extra-axial collection, hydro cephalus or intracranial mass. Mild T2/FLAIR hyperintense foci throughout the white matter suggestive of chronic microvascular ischemic disease. Mild involutional changes. 2.3 cm focus of polypoid muscle thickening within the left maxillary sinus. The cerebral venous sinus es and major arterial flow voids appear patent. The skull, orbits and soft tissues are unremarkable. IMPRESSION: No acute intracranial abnormality. No acute or subacute infarct. ACT 112: Negative or not required by law. The above report was generated using voice recognition software. It may contain grammatical, syntax o r spelling errors. Electronically signed by: Armando Vera M.D. 03/26/2023 5:28 PM
[2023-03-26] MEDS: INSULIN ASPART PER UNIT CHARGE SC SCH ×2 (17:45→21:15)
[2023-03-26] MEDS: CLINDAMYCIN/D5W 600 MG/50 ML BAG IV SCH (17:54)
--- NOTE | 2023-03-26 19:02 | Magnetic Resonance Report ---
MR cervical spine wo con HISTORY: 62 years-old Male numbness and weakness left arm chronic neck pain with left upper extremit y radicular symptoms COMPARISON: CTA neck of same day TECHNIQUE: Multiplanar multisequence MRI of the cervical spine was obtained without the use of IV con trast FINDINGS: Contract Forester localizer images demonstrate no gross extra spinal abnormality. Signal within the brainstem and posterior fossa structures appear unremarkable. Minimal signal within the cervical and imaged thorac ic spinal cord. There is no acute fracture, subluxation, endplate erosion or marrow replacing process identified. Discectomy at C5-C7 with disc spacer in place. Artifact from the hardware limits evaluat ion of this interspace. C2-C3: Mild intervertebral disc space narrowing, uncovertebral hypertrophy and mild facet arthrosis. The central canal and neural foramen are patent. C3-C4: Uncovertebral hypertrophy with mild facet arthrosis. The central canal is patent. Mild to mode rate bilateral foraminal narrowing. C4-C5: Uncovertebral hypertrophy with mild facet arthrosis. The central canal is patent. Mild bilater al foraminal narrowing. C5-C6: Mild intervertebral disc space narrowing, uncovertebral hypertrophy and mild facet arthrosis. Tiny posterior annular disc bulge with mild central canal stenosis. AP dimension of the thecal sac me asures 8 mm. Mild right with mild to moderate left neural foraminal narrowing. C6-C7. Discectomy with suboptimal visualization of this interspace. No central canal stenosis. There appears to be at least codl-ms-dhwmwgct bilateral foraminal narrowing. C7-T1: Uncovertebral hypertrophy with mild posterior intervertebral disc space narrowing and small ce ntral disc osteophyte complex. Mild to moderate facet arthrosis.. The central canal and neural forame n are patent. IMPRESSION: 1. No acute fracture, subluxation or bone marrow edema. 2. Discogenic degeneration and facet arthrosis as above without high-grade central canal or neural fo raminal narrowing. 3. C6-C7 discectomy. 4. Normal signal of the cervical spinal cord. ACT 112: Negative or not required by law. The above report was generated using voice recognition software. It may contain grammatical, syntax o r spelling errors. Electronically signed by: Armando Vera M.D. 03/26/2023 7:00 PM
[2023-03-26] MEDS ORDERED: PREGNENOLONE PO SCH (21:00)
[2023-03-26] MEDS ORDERED: GLIMEPIRIDE 2 MG TAB PO SCH (21:00)
[2023-03-26] MEDS: DOCUSATE SODIUM/SENNA 50/8.6MG TAB PO SCH (21:12)
[2023-03-26] MEDS: lisinopril 5 MG TAB PO SCH (21:56)
[2023-03-27] MEDS: CHECK SCOPOLAMINE PATCH PLACEMENT SCH ×4 (00:50→21:56)
[2023-03-27] MEDS: SODIUM CHLORIDE 0.9% 1000ML 1,000 ML IV SCH (01:27)
[2023-03-27] MEDS: CLINDAMYCIN/D5W 600 MG/50 ML BAG IV SCH (01:28)
[2023-03-27] MEDS: HYDROmorphone INJ 1 MG/ML SYRINGE IV PRN (01:59)
[2023-03-27] MEDS: oxyCODONE HCL IR 5 MG TAB (IMMEDIATE RELEASE) PO PRN ×3 (06:07→15:26)
[2023-03-27 07:17] LABS: Basophils # (auto) 0.02 K/uL (0-0.2); Basophils % (auto) 0.2 %; Eosinophils # (auto) 0.01 K/uL (0-0.50); Eosinophils % (auto) 0.1 %; Hematocrit (blood only) 32.2 % (42.0-52.0); Hemoglobin 11.2 g/dl (14.0-18.0); Immature Granulocytes # (auto) 0.05 K/uL (0.01-0.20); Immature Granulocytes % (auto) 0.6 %; Lymphocytes # (auto) 1.41 K/uL (1.2-3.4); Lymphocytes % (auto) 16.7 %; Mean Corpuscular Hemoglobin 28.4 pg (25.0-34.0); Mean Corpuscular Hgb Conc 34.8 g/dL (32.0-36.0); Mean Corpuscular Volume 81.7 fL (80.0-100.0); Mean Platelet Volume 10.8 fL (9.4-12.4); Monocytes # (auto) 0.68 K/uL (0.11-0.59); Neutrophils # (auto) 6.29 K/uL (1.40-6.50); Neutrophils % (auto) 74.4 %; Platelet Count 201 K/uL (130-400); RDW Coefficient of Variation 13.2 % (11.5-14.5); RDW Standard Deviation 38.9 fL (36.4-46.3); Red Blood Count 3.94 M/uL (4.70-6.10); White Blood Count 8.46 K/ul (4.8-10.8)
[2023-03-27 07:29] LABS: Calcium 8.8 mg/dl (8.6-10.3); Creatinine Clr Calc Pharmacy 71.8 ml/min; Est GFR (African American) 85.4 ml/min; Est GFR (Non-African American) 73.7 ml/min; Potassium 4.3 mmol/L (3.5-5.1)
--- NOTE | 2023-03-27 08:06 | Orthopedic Progress Note ---
Date of Service March 27, 2023 Assessment & Plan (1) Neurogenic claudication due to lumbar spinal stenosis: Plan: Reggie is postoperative day 1 status post hard removal L3-5, decompression L2-3 instrumented fusion L2-5. Today he will start physical therapy. Maintain BRETT drain. DVT prophylaxis is in the form of teds and SCDs. Continue with pain control. Anticipate discharge home towards the latter half of the week. Admission and Anticipated Discharge Date Admission Date: March 26, 2023 Subjective Reggie is postoperative day 1 status post hardware removal L3-5 decompression and interbody L2-3, instrumented fusion L2-5. Yesterday after his procedure he had complaints of left upper extremity numbness and weakness. CT a of the neck and head were performed. Brain MRI and cervical MRI were also performed. He was moved to [facility] telemetry floor for observation. All of the scans showed no acute findings BRETT drain output last shift was 60 cc. H&H this morning are 11.2 and 32.2 respectively. He notes numbness in the left lower extremity. Pain is improved right lower extremity. Has complaints of lower back pain. Is quite worried about pain control given his last experience after his lumbar fusion Review of Systems Review of Systems: All systems reviewed & are unremarkable except as noted in HPI & below Physical Exam Physical Exam: He sitting on the edge of the bed in no acute distress Alert and oriented x3 Lumbar dressing is clean dry and intact with functioning BRETT drain Calf soft nontender bilateral Strength intact bilateral lower extremities Results & Data Vital Signs (Past 12 Hours) Vital Signs Temp Pulse Pulse Resp BP Pulse Ox O2 Del Method 03/27/23 08:00 36.9 C 65 18 115/74 96 Room Air 03/27/23 03:10 36.8 C 71 18 119/68 94 Room Air 03/27/23 00:48 81 03/26/23 22:51 36.6 C 79 18 125/75 95 Room Air
[2023-03-27] MEDS: INSULIN ASPART PER UNIT CHARGE SC SCH ×4 (08:51→21:11)
[2023-03-27] MEDS: HYDROmorphone INJ 0.5 MG/0.5 ML SYR IV PRN ×2 (08:52→21:10)
[2023-03-27] MEDS: POLYETHYLENE (MIRALAX) 17 GM PACK PO SCH ×3 (08:52→17:16)
[2023-03-27] MEDS: dexAMETHasone 6 MG in SYRINGE 0 ML IV SCH (08:53)
[2023-03-27] MEDS ORDERED: PRASTERONE 25 MG PO SCH (09:00)
[2023-03-27] MEDS ORDERED: NON-FORMULARY MEDICATION (Coq10 (Ubiquinol) 200 mg Capsule) PO SCH (09:00)
[2023-03-27] MEDS ORDERED: LANTUS PER UNIT CHARGE SC ONE (09:00)
[2023-03-27] MEDS: CHOLECALCIFEROL 1,000 UNITS 25 MCG TAB PO SCH (09:54)
[2023-03-27] MEDS: ZINC SULFATE 220 MG CAPSULE PO SCH (09:54)
--- NOTE | 2023-03-27 14:21 | Hospitalist Progress Note ---
Date of Service March 27, 2023 Assessment & Plan (1) Neurogenic claudication due to lumbar spinal stenosis: Plan: Acute/unstable - moderate risk - POD#1 s/p L2L3 decompression and fusion, L3L5 re-instrumentation, spinal cord monitoring and L3-L5 hardware removal by Dr. Olivia - Pain control, PT/OT/activity, DVT ppx, BRETT drain management per primary service - Now with concern for new LLE weakness, MRI brain negative - ?post operative (2) Weakness of left upper extremity: Plan: Acute/stable/resolved - stroke alert was called on 03/26 post operatively and patient went urgently to CT scan and was transferred to tele afterwards - CT head revealed no acute intracranial findings. - CTA head unremarkable CTA of the brain. - CTA neck revealed high grade stenosis at the origin of the vertebral artery and atheromatous plaque involving the proximal cervical segments of the internal carotid arteries resulting in less than 50% stenosis. - MRI head and neck as above (brain negative for CVA) - LUE weakness/numbness resolved - Suspect sx were d/t position during surgery (3) Diabetes mellitus, type 2: Plan: Chronic, unstable - Last HgbA1C was 10 in February 2023 - Primary team consulted pharmacy for glycemic control - DMT2 diet ordered and BSG ac and hs - Suspect some of his hyperglycemia is steroid-induced (receiving Decadron) (4) DDD (degenerative disc disease), cervical: Plan: Chronic/stable - Hx of C3 surgery 2014 - Hx of left shoulder surgery 2018 - Likely contributed to his left arm numbness/tingling post operatively (5) Hypertension: Plan: Chronic, stable - Continue Lisinopril Plan SCDs/TEDs for DVT ppx due to higher risk of bleeding from spine surgery (therefore defer chemoppx). Transfer off of tele to med/surg. Continue to ambulate. Did well with PT today. No further recommendations at this time. Will sign off at this time as he is medically stable but continue to chart check daily. Please feel free to contact if any acute needs should arise while he remains in house. Plan to be d/w Dr. Quarles. Admission and Anticipated Discharge Date Admission Date: March 26, 2023 Subjective Patient was seen on daily rounds this morning. Following his lumbar surgery yesterday, a stroke alert was called due to concerns for LUE numbness/weakness. MRI of his brain and neck were largely unremarkable. Today, his who is accompanying him at bedside, notes that he is having left lower extremity weak ness compared to his right leg. He was not having this issue prior to surgery. He is not having pain radiating into his LLE. His back pain seems reasonably controlled, he currently rates it a 6/10. He has not yet had a BM. Is voiding w/o issue. Denies chest pain or dyspnea. No loss of bowel/bladder control. Physical Exam Physical Exam: GENERAL: 62 yo well-developed, well-nourished. AAOx4. NAD. LUNGS: Clear to auscultation bilaterally w/o W/R/R. CARDIOVASCULAR: Regular rate and rhythm EXTREMITIES: No edema. Non-tender. Peripheral pulses +2/4. NEUROLOGIC: LLE strength 3/5 and RLE strength 5/5. CN II-XII grossly intact. b/l UE 5/5 strength. sensation intact. No other focal neuro deficits. Results & Data Results & Data Vital Signs (Past 12 Hours) Vital Signs Temp Pulse Pulse Resp BP Pulse Ox O2 Del Method 03/27/23 07:30 63 03/27/23 08:00 36.9 C 65 18 115/74 96 Room Air 03/27/23 03:10 36.8 C 71 18 119/68 94 Room Air Laboratory Results 03/27/23 06:40 03/27/23 06:40 PG Care Time/CCT Total # of Minutes Spent Total Time Spent with Patient: Total time spent is greater than 50% in coordination of care (as documented) at patient's floor/unit and/or counseling patient: Coding Level of Care Code 51804 SUB INP/OBS CARE 2/35MIN Diagnoses Neurogenic claudication due to lumbar spinal stenosis M48.062 Weakness of left upper extremity R29.898 Diabetes mellitus, type 2 E11.9 DDD (degenerative disc disease), cervical M50.30 Hypertension I10
--- NOTE | 2023-03-27 14:41 | Pharmacy Report ---
Pharmacy Glycemic Short Note 2 - Date of Service March 27, 2023 - Glycemic Short BSG Results (Last 24 hours): 03/26/23 03/26/23 03/26/23 16:17 16:19 16:19 Glucose POC Glucose 396 H* 412 H* 459 H* 03/26/23 03/26/23 03/27/23 20:33 20:34 06:40 Glucose 225 H POC Glucose 311 H* 313 H* 03/27/23 03/27/23 07:35 11:15 Glucose POC Glucose 198 H 267 H OUTPATIENT ANTIDIABETIC REGIMEN: * Glimepiride 2mg PO BID * Metformin 1gm PO BID * HbA1c: 10% (02/15/23) ASSESSMENT: 03/27/23 * Patient's BSGs yesterday were [phone] mg/dL. Patient received 41 units of insulin. Pharmacy was not notified of elevated BSGs. * This morning, fasting BSG was 198 mg/dL. Patient to receive dexamethasone 6 mg IV daily x 3 days * Will start with Lantus full weight-based stress of 3. * Tighten Novolog to weight-based stress of 3 due to elevated BSGs. BACKGROUND * Mr Vishal is a 62yo diabetic M, POD 0 s/p spinal surgery with Dr Olivia this morning. * Post-op, stroke alert was called on patient for arm weakness/numbness. * Pt received 8mg IV DXM pre-operatively today and is scheduled for daily doses x3. This is expected to lead to significant steroid-induced hyperglycemia. * Pt was initiated on SQ basal/bolus insulin regimen on admission. * Pharmacy will continue to follow and adjust regimen as indicated. PLAN FOR INPATIENT GLYCEMIC CONTROL: * Hold outpatient oral diabetes medications * Basal insulin * Lantus 40 units SQ daily * Bolus insulin * NovoLog per scale ACHS or Q6hrs while NPO * Goal Range: Low 110 mg/dL - High 140 mg/dL * Correction Factor: 20 mg/dL/unit * Nutritional / Prandial insulin per carb ratio of 1 unit per 5 grams CHO consumed
[2023-03-27] MEDS: lisinopril 5 MG TAB PO SCH (21:10)
[2023-03-27] MEDS: DOCUSATE SODIUM/SENNA 50/8.6MG TAB PO SCH (21:10)
[2023-03-28] MEDS ORDERED: INSULIN ASPART PER UNIT CHARGE SC ONE (02:00)
[2023-03-28] MEDS: POLYETHYLENE (MIRALAX) 17 GM PACK PO SCH ×5 (02:10→23:08)
[2023-03-28] MEDS: CHECK SCOPOLAMINE PATCH PLACEMENT SCH ×3 (08:14→23:08)
[2023-03-28] MEDS: ZINC SULFATE 220 MG CAPSULE PO SCH (08:14)
[2023-03-28] MEDS: CHOLECALCIFEROL 1,000 UNITS 25 MCG TAB PO SCH (08:14)
[2023-03-28] MEDS: dexAMETHasone 6 MG in SYRINGE 0 ML IV SCH (08:14)
[2023-03-28] MEDS: oxyCODONE HCL IR 5 MG TAB (IMMEDIATE RELEASE) PO PRN ×2 (08:18→15:14)
[2023-03-28] MEDS: INSULIN ASPART PER UNIT CHARGE SC SCH ×4 (08:19→21:37)
[2023-03-28] MEDS ORDERED: LANTUS PER UNIT CHARGE SC ONE (11:00)
--- NOTE | 2023-03-28 14:31 | Orthopedic Progress Note ---
Date of Service March 28, 2023 Assessment & Plan (1) Neurogenic claudication due to lumbar spinal stenosis: Plan: This time continue physical therapy monitor BRETT output anticipate discharge home tomorrow. Admission and Anticipated Discharge Date Admission Date: March 26, 2023 Subjective Back pain is improving left leg symptoms markedly improved. He has no upper extremity symptoms at this time. He is tolerating physical therapy well. Physical Exam Physical Exam: On exam patient is sitting in the chair at the bedside. Has good strength testing. Peers comfortable. Results & Data Vital Signs (Past 12 Hours) Vital Signs Temp Pulse Resp BP Pulse Ox O2 Del Method 03/28/23 08:30 Room Air 03/28/23 07:46 36.8 C 63 20 109/73 98 Room Air 03/28/23 03:09 36.7 C 69 18 129/76 98 Room Air
[2023-03-28] MEDS: DOCUSATE SODIUM/SENNA 50/8.6MG TAB PO SCH (21:35)
[2023-03-28] MEDS: lisinopril 5 MG TAB PO SCH (21:36)
[2023-03-29] MEDS: oxyCODONE HCL IR 5 MG TAB (IMMEDIATE RELEASE) PO PRN ×3 (03:17→11:37)
[2023-03-29] MEDS: POLYETHYLENE (MIRALAX) 17 GM PACK PO SCH ×2 (05:26→12:47)
[2023-03-29] MEDS ORDERED: NovoLIN-N (NPH) PER UNIT CHARGE SQ ONE (08:30)
[2023-03-29] MEDS: INSULIN ASPART PER UNIT CHARGE SC SCH ×2 (09:09→12:46)
[2023-03-29] MEDS: CHOLECALCIFEROL 1,000 UNITS 25 MCG TAB PO SCH (09:10)
[2023-03-29] MEDS: ZINC SULFATE 220 MG CAPSULE PO SCH (09:11)
[2023-03-29] MEDS: dexAMETHasone 6 MG in SYRINGE 0 ML IV SCH (09:11)
[2023-03-29] MEDS: HYDROmorphone INJ 1 MG/ML SYRINGE IV PRN (11:31)
--- NOTE | 2023-03-29 11:36 | Discharge Summary ---
Date of Service March 29, 2023 Admission HPI Per Admitting Provider This is a 62-year-old male who presents with chronic persistent back and bilateral leg pain after an extensive course of nonoperative care is here for surgical invention. Principal Diagnosis Lumbar spinal stenosis with neurogenic claudication Discharge Data Allergies Allergy/AdvReac Type Severity Reaction Status Date / Time amoxicillin Allergy Intermediate shakey and Verified 03/26/23 07:43 hyper clavulanic acid Allergy Intermediate shakey and Verified 03/26/23 07:43 hyper Phdqxvm-OWW-HrI Reductase Allergy Intermediate severe Verified 03/26/23 07:43 Inhibitor myalgias [Fwxigvf-Fjh-Xah Reductase Inhibitor] Consultations 03/26/23 12:27 Consult Hospitalist Routine Procedures Performed Operation Date: 03/26/23 08:45 Actual Procedures p L2-L3 Decompression and Fusion, L3-L5 Reinstrumentation, Spinal Cord Monitoring(Not Applicable) - Vasile Olivia DO s L3-L5 Hardware Removal (Not Applicable) - Vasile Olivia DO Ordered Studies 03/26/23 08:45 FL lumbar spine 2-3V Routine 03/26/23 13:12 CT head/brain wo con Stat 03/26/23 13:17 CT angio head w con Stat CT angio neck with con Stat 03/26/23 14:50 MRI Brain [MR brain wo con] Routine MRI Neck [MR cervical spine wo con] Routine Hospital Course (1) Neurogenic claudication due to lumbar spinal stenosis: Patient underwent lumbar decompression fusion tolerated this well was taken to the orthopedic for postoperative. He did have an episode of some numbness affecting left upper and lower extremities. He was taken to the medical floor. He however resolved this appropriately throughout his stay. He was tolerating physical therapy. Had good strength testing. BRETT drain decreasing probably. Subsequent discharge home. Discharge orders instructions found in chart for further review. Total Time Total Time Spent Total Time Spent (In Minutes): 20 minutes Discharge Plan Discharge Items Patient Disposition: Home - Self-Care Reason For Visit: POST OP Discharge Diagnosis: Lumbar spine stenosis with neurogenic claudication Activity: As commented below Non-emergency contact: Primary Care Provider Call non-emergency contact if: you have any medication questions Follow-up/Referrals: Antonio Rodriguez MD [Primary Care Provider] - Diet: Regular Addtl Attending Provider Instructions: ACTIVITY RECOMMENDATIONS: SELF CARE INSTRUCTIONS AFTER THORACIC/LUMBAR FUSIONS 1. You may walk to your tolerance. It is good exercise for your legs and back. Expect some back and intermittent leg aches and pains. 2. You may perform "counter-top" level activities (make a sandwich, gabriel with a project, etc.). 3. No bending or lifting of more than 10 pounds or back twisting of any nature (roll like a log when turning in bed). 4. You may ride in a car for 20-30 minutes at a time. No driving until after your first visit with your doctor. 5. Frequent changes of position and restricting sitting to 30 minutes at a time will help limit the amount of back spasms and stiffness you may experience. 6. You may discontinue the use of ambulatory aids (cane, crutches, etc.) once your strength and confidence allow. 7. You may sap administrator the shower and let water strike your incision when you arrive home at least once daily. Do not take a tub bath, sit in a hot tub or go into a swimming pool until after your first recheck in the office. SPECIAL CARE INSTRUCTIONS: VERY IMPORTANT TO READ AND REVIEW A. Your surgical incision has been closed with a cosmetic suture under the skin that will dissolve in about 6 weeks. In 14 days, you can use a pair of clean scissors and cut the suture that is left outside of the skin at the ends of your incision. 1. The small skin tapes can be removed 7 days after surgery if they have not fallen off by that point. 2. You may keep the wound open to air as much as possible to promote healing after post-op day number 5 unless told otherwise by your doctor. 3. If you think the wound looks like it is becoming infected (redness or worsening drainage) and/or you are experiencing fever, chill or worsening back pain and muscle spasms, contact the office so that we may evaluate you as soon as possible. B. Complications are uncommon, but please contact us if you have any signs or symptoms of: 1. wound infection (fever higher than 102.5 degrees F, redness, separation of wound, drainage, or increasing pain from the incision) 2. blood clots in legs (pain, swelling, redness and warmth in legs) 3. urinary tract infection (fever higher than 102.5 degrees F, burning upon urination or increased frequency of urination) 4. nerve problems (inability to walk on your toes or heels, numbness, loss of bowel or bladder control) 5. any other symptoms that concern you C. Please call the office at if you have any concerns or questions about your operation or recovery. D. No smoking! Smoking drastically decreases the chance of a solid fusion. E. Do not take any anti-inflammatory medications (Indocin, Advil, Motrin, Aspirin, Naprosyn, etc.) as these may inhibit the chance of a solid fusion. Tylenol is okay to take for pain. MANAGING PAIN AFTER SPINAL SURGERY 1. Narcotic medication is intended for short-term use and will be provided for surgical pain. Surgical pain usually lasts for a period of 4-6 weeks. Narcotic medication includes Percocet, Vicodin, Darvocet, Tylenol #3 or Lortab. 2. Longer-term pain is more appropriately treated with non-narcotic medication such as Tylenol ES. 3. Muscle spasm is not appropriately treated with narcotics. Muscle relaxers such as Soma, Flexeril or Skelaxin can be used along with Tylenol ES. 4. Remember that we all live with some "aches and pains". This is not unusual or uncommon after an injury or as we get older. a. Back pain is expected and may include muscle spasms for 4 to 6 weeks after surgery. The pain should gradually improve. If the pain worsens for no apparent reason, please contact the office. b. Intermittent leg pain may also be experienced and should not be concerned about unless it worsens for no apparent reason. If so, please contact the office. 5. We will provide appropriate medication within the normal guidelines of their prescribed use. We will also be very cautious and aware of potential abuse and extended duration of patients' medication needs. a. Pain medications are for your comfort and to assist with sleep and rest so that the tissue can heal. They are not provided in order to return to normal activity and should not be used through the day. To do so or worsening pain at night can result from ongoing tissue damage and development of tolerance to the prescribed medicine. 6. Please allow 2-3 days to process refills. Prescriptions will not be mailed but must be picked up at the office. FOLLOW UP VISIT: Keep your scheduled follow-up appointment. Any questions, please call the office at . Pending Studies at Discharge: No Stand-Alone Forms: My [facility], Smoking Cessation Medications and DC Order Prescriptions: New tramadol 50 mg tablet 50 mg PO Q6H PRN (Reason: pain, moderate) Qty: 30 0RF oxycodone 5 mg tablet 5 mg PO Q6H PRN (Reason: pain) Qty: 30 0RF Continued prasterone (dhea) [DHEA] 25 mg Capsule 25 mg PO QAM glimepiride 2 mg Tablet 2 mg PO BID metformin 1,000 mg Tablet 1,000 mg PO BID zinc 50 mg Tablet 50 mg PO QAM lisinopril 5 mg Tablet 5 mg PO HS cholecalciferol (vitamin D3) [Vitamin D3] 25 mcg (1,000 unit) Tablet 25 mcg PO QAM coQ10 (ubiquinol) 200 mg Capsule 200 mg PO QAM Pregnenolone 50 mg PO QPM methocarbamol 750 mg Tablet 750 mg PO DAILY PRN (Reason: Muscle Spasm) gabapentin 300 mg Capsule 300 mg PO TID PRN (Reason: Pain) tramadol 50 mg Tablet 50 mg PO Q6H PRN (Reason: Pain) Discharge Orders: Discharge Order (Routine); Ordered 03/29/23 Ordered By: Vasile Olivia Admission Data Admit Date/Time: 03/26/23 11:14 Attending Provider: Vasile Olivia Admit Provider: Vasile Olivia Primary Care Provider: Antonio Rodriguez V. Other Providers: Raymond Penaloza ; Tony Shahid
== END 2023-03-29 13:36 | disposition home or self-care (01) | DRG 455 ==
LOC: ASU 07:06 → 3E 11:14 → 2W 14:31